=== PATIENT | male | born 1985 | race Two or more races ===

== ENCOUNTER 2017-06-03 16:18 | Emergency (ER) | payer MEDICAID ==
[~2017-06-03] VITALS: Ht 182.9 cm; Wt 117.9 kg
--- NOTE | 2017-06-03 18:35 | NUR ---
Patient eloped from facility. Pt seen walking out of ER with steady gait.
== END 2017-06-03 18:36 | disposition left against medical advice (07) ==
LOC: ER 16:19
DX: Z53.21 Procedure and treatment not carried out due to patient leaving prior to being seen by health care provider (principal)
CPT/HCPCS: A4663